=== PATIENT | male | born 1980 | race Caucasian/White ===

== ENCOUNTER 2016-09-19 00:47 | Emergency (ER) | payer MEDICAID, OTHER ==
--- NOTE | 2016-09-19 01:47 | EDM.PDOC ---
ED HPI GENERAL MEDICAL PROBLEM - General Chief Complaint: Neuro Symptoms/Deficits Stated Complaint: MEDICAL VIA NORTH Time Seen by Provider: 09/19/16 01:05 Source of Information: Reports: Patient, EMS, Family History Limitations: Reports: No Limitations - History of Present Illness INITIAL COMMENTS - FREE TEXT/NARRATIVE: 36-year-old male who is been having partial seizure like episodes for the last 17 years, experienced a more dramatic generalized type seizure witnessed by his this evening. He was looking at his phone when he felt something "wasn't right" so he set his phone down but that's the last thing he remembers. He then folded his arms and started to have generalized shaking after some moaning sounds, his eyes were open and he started foaming from the right side of his mouth. This lasted 1-2 minutes and his called the ambulance. He did bite the right side of his tongue. He has not been ill lately, has felt fine and has not had any seizure-like episode for 6 months. His previous episodes were smells or recurring visions that are persistent for 30 seconds to a minute but he stays conscious and can even "drive through them". They were significant enough to mention to his physician's but nothing was checked because they felt it should be witnessed. Denies headaches. He did take a Benadryl 2 hours ago to help him sleep. He does not drink alcohol. EMS did check a blood glucose on arrival and it was 57, 10 g of glucose was given in route and it is now 117. Severity: Moderate Associated Symptoms: Reports: Other (Bit his tongue) mid back Pain Score (Numeric/FACES): 5 - Related Data Allergies Allergy/AdvReac Type Severity Reaction Status Date / Time No Known Allergies Allergy Verified 09/19/16 01:03 Home Meds: Home Meds Acetaminophen [Tylenol] 1,000 mg PO Q6H PRN 11/09/13 [History] Ibuprofen 400 mg PO Q6H PRN 11/09/13 [History] diphenhydrAMINE [Benadryl] 25 mg PO Q4H PRN 09/19/16 [History] Past Medical History Cardiovascular History: Reports: Arrhythmia Neurological History: Reports: Seizure, Other (See Below) Other Neuro History: undiagnosed Hematologic History: Reports: None Oncologic (Cancer) History: Reports: None - Infectious Disease History Infectious Disease History: Reports: Chicken Pox - Past Surgical History Cardiovascular Surgical History: Reports: Cardiac Ablation Social & Family History - Tobacco Use Years of Tobacco use: 20 Packs/Tins Daily: 0.3 - Caffeine Use Caffeine Use: Reports: Coffee - Alcohol Use Days Per Week of Alcohol Use: 0 - Recreational Drug Use Recreational Drug Use: No ED ROS GENERAL - Review of Systems Review Of Systems: See Below Constitutional: Denies: Fever, Chills, Malaise HEENT: Denies: Vision Change Respiratory: Denies: Shortness of Breath, Cough Cardiovascular: Denies: Chest Pain Endocrine: Denies: Fatigue GI/Abdominal: Denies: Abdominal Pain, Nausea, Vomiting : Reports: No Symptoms Musculoskeletal: Reports: No Symptoms Skin: Reports: No Symptoms Neurological: Denies: Dizziness, Headache Psychiatric: Reports: No Symptoms - Physical Exam Exam: See Below Exam Limited By: No Limitations General Appearance: Alert, No Apparent Distress Eye Exam: Bilateral Eye: EOMI, Normal Inspection Throat/Mouth: Evidence of Tongue Biting (Right posterior lateral tongue has a small contusion) Head Exam: Atraumatic, Normocephalic Neck: Normal Inspection Respiratory/Chest: No Respiratory Distress, Lungs Clear Cardiovascular: Regular Rate, Rhythm GI/Abdominal: Soft, Non-Tender Neuro Exam (Abbreviated): Alert, Oriented, No Motor/Sensory Deficits Psychiatric: Normal Affect, Normal Mood Skin Exam: Warm, Dry Course - Vital Signs Last Recorded V/S: Last Vital Signs Temp 97.9 F 09/19/16 00:59 Pulse 75 09/19/16 01:25 Resp 16 09/19/16 01:25 BP 133/88 09/19/16 01:25 Pulse Ox 97 09/19/16 01:25 - Orders/Labs/Meds Orders: Active Orders 24 hr Category Date Time Status Head wo Cont [CT] Stat Exams 09/19/16 01:23 Taken Labs: Laboratory Tests 09/19/16 09/19/16 Range/Units 01:23 01:30 WBC 12.2 H (4.5-11.0) K/uL RBC 4.70 (4.30-5.90) M/uL Hgb 13.8 (12.0-15.0) g/dL Hct 40.2 (40.0-54.0) % MCV 86 (80-98) fL MCH 29 (27-31) pg MCHC 34 (32-36) % Plt Count 224 (150-400) K/uL Neut % (Auto) 76 H (36-66) % Lymph % (Auto) 12 L (24-44) % [place] % (Auto) 8 H (2-6) % Eos % (Auto) 3 (2-4) % Baso % (Auto) 1 (0-1) % Sodium 139 L (140-148) mmol/L Potassium 4.1 (3.6-5.2) mmol/L Chloride 105 (100-108) mmol/L Carbon Dioxide 27 (21-32) mmol/L Anion Gap 11.1 (5.0-14.0) mmol/L BUN 14 (7-18) mg/dL Creatinine 1.0 (0.8-1.3) mg/dL Est Cr Clr Drug Dosing 109.93 mL/min Estimated GFR (MDRD) > 60 (>60) Glucose 107 H (74-106) mg/dL Calcium 9.0 (8.5-10.1) mg/dL Magnesium 2.0 (1.8-2.4) mg/dL Total Bilirubin 0.2 (0.2-1.0) mg/dL AST 23 (15-37) U/L ALT 25 (12-78) U/L Alkaline Phosphatase 56 (46-116) U/L Total Protein 7.1 (6.4-8.2) g/dL Albumin 3.6 (3.4-5.0) g/dL Globulin 3.5 (2.3-3.5) g/dL Albumin/Globulin Ratio 1.0 L (1.2-2.2) Meds: Medications Discontinued Medications Generic Name Dose Route Start Last Admin Trade Name Joleen PRN Reason Stop Dose Admin Ibuprofen 600 mg 09/19/16 02:28 09/19/16 02:30 Motrin PO 09/19/16 02:29 600 mg ONETIME ONE Administration Ibuprofen Confirm 09/19/16 02:29 Motrin Administered 09/19/16 02:30 Dose 600 mg .ROUTE .STK-MED ONE - Re-Assessments/Exams Free Text/Narrative Re-Assessment/Exam: 09/19/16 01:47 A long discussion was had with the patient and his , his mental status is now baseline and he is thinking clearly. CBC, CMP, magnesium, and head CT without contrast was obtained. 09/19/16 02:16 Labs were all reassuring. Head CT was normal. He continued to feel fine. I'm going to discharge him home but discussed his case with neurology and try to get an appointment for him in the near future. 09/19/16 06:45 Patient's symptoms were discussed with neurology. It was recommended he be loaded with Keppra, and continued on oral Keppra and a MRI of his head with and without contrast be obtained and then neurology consulted. This was arranged. Departure - Departure Time of Disposition: 02:31 Disposition: Home, Self-Care 01 Condition: Good Clinical Impression: Seizure - Discharge Information Instructions: Seizure, Adult, [id number] Referrals: PCP,None [Primary Care Provider] - Forms: ED Department Discharge Care Plan Goals: Rest tomorrow, I will call you in the morning with further instructions and suggestions on follow-up. - My Orders Last 24 Hours: My Active Orders 09/19/16 01:23 Head wo Cont [CT] Stat - Assessment/Plan Last 24 Hours: My Active Orders 09/19/16 01:23 Head wo Cont [CT] Stat
[2016-09-19 02:16] VITALS: BP 133/88
[2016-09-19] MEDS ORDERED: Ibuprofen 600 MG Tab PO ONE (02:28)
[2016-09-19] MEDS ORDERED: Ibuprofen 600 MG Tab ONE (02:29)
[2016-09-19] MEDS ORDERED: levETIRAcetam 2,000 MG in Sodium Chloride 0.9% 150 ML IV ONE (07:45)
== END 2016-09-19 02:31 | disposition home or self-care (01) ==
LOC: JP.ED 00:47
DX: R56.9 Unspecified convulsions (principal)
CPT/HCPCS: 36415; 70450; 80053; 83735; 85025; 99285; A9270; 96365; J1953; J7040

== ENCOUNTER 2018-05-11 01:13 | Emergency (ER) | payer MEDICAID ==
[2018-05-11] MEDS ORDERED: levETIRAcetam 500 MG/5 ML Solution ML 473 ml Bottle PO STA (01:54)
[2018-05-11] MEDS ORDERED: levETIRAcetam 250 MG Tab PO STA (02:01)
--- NOTE | 2018-05-11 02:06 | EDM.PDOC ---
ED HPI GENERAL MEDICAL PROBLEM - General Chief Complaint: Neurological Problem Stated Complaint: MEDICAL VIA NORTH Time Seen by Provider: 05/11/18 01:40 Source of Information: Reports: Patient, Family, Old Records, RN History Limitations: Reports: No Limitations - History of Present Illness INITIAL COMMENTS - FREE TEXT/NARRATIVE: 38 yo male presents from home after a couple minute seizure. Had a couple seizures in the past and was apparently managed with low dose Keppra at 500 mg bid. Higher doses caused too much sedation. Eventually since he was seizure free they elected to stop the med and he later threw it out. Now he is back for more of this. Also has a hx of SVT and had a failed ablation for this so still has some bouts of tachycardia. Bit his tongue during his seizure. Onset: Today Onset Date: 05/11/18 Onset Time: 12:15 Duration: Minutes: (2), Resolved Prior to Arrival Location: Reports: Generalized Quality: Reports: Other (no pain reported.) Severity: Moderate Improves with: Reports: None Worsens with: Reports: None Context: Reports: Other (see HPI) Associated Symptoms: Reports: No Other Symptoms Treatments CREAM DUMPER: Reports: IV/IO, Other (see below) (none) - Related Data Allergies Allergy/AdvReac Type Severity Reaction Status Date / Time No Known Allergies Allergy Verified 05/11/18 01:22 Home Meds: Home Meds Acetaminophen [Tylenol] 1,000 mg PO Q6H PRN 11/09/13 [History] Ibuprofen 400 mg PO Q6H PRN 11/09/13 [History] diphenhydrAMINE [Benadryl] 25 mg PO Q4H PRN 09/19/16 [History] levETIRAcetam [Keppra] 500 mg PO Q12H #60 tablet 05/11/18 [Rx] Past Medical History Cardiovascular History: Reports: Arrhythmia Genitourinary History: Reports: Renal Calculus Neurological History: Reports: Seizure, Other (See Below) Other Neuro History: undiagnosed Hematologic History: Reports: None Oncologic (Cancer) History: Reports: None - Infectious Disease History Infectious Disease History: Reports: Chicken Pox - Past Surgical History Cardiovascular Surgical History: Reports: Cardiac Ablation Social & Family History - Tobacco Use Smoking Status *Q: Current Every Day Smoker Years of Tobacco use: 25 Packs/Tins Daily: 0.3 - Caffeine Use Caffeine Use: Reports: Tea - Recreational Drug Use Recreational Drug Use: No ED ROS GENERAL - Review of Systems Review Of Systems: See Below Constitutional: Reports: No Symptoms HEENT: Reports: Other (minor tongue injury from biting during seizure.) Respiratory: Reports: No Symptoms Cardiovascular: Reports: No Symptoms GI/Abdominal: Reports: No Symptoms : Reports: No Symptoms Musculoskeletal: Reports: No Symptoms Skin: Reports: No Symptoms Neurological: Reports: Seizure Psychiatric: Reports: No Symptoms - Physical Exam Exam: See Below Exam Limited By: No Limitations General Appearance: Alert, WD/WN, No Apparent Distress Eye Exam: Bilateral Eye: Normal Inspection Ears: Normal External Exam, Normal Canal, Normal TMs Nose: Normal Inspection, No Blood Throat/Mouth: Normal Inspection, Normal Lips, Normal Oropharynx, Normal Voice, No Airway Compromise, Evidence of Tongue Biting Head Exam: Atraumatic, Normocephalic Neck: Normal Inspection Respiratory/Chest: No Respiratory Distress, Lungs Clear, Normal Breath Sounds, No Accessory Muscle Use Cardiovascular: Regular Rate, Rhythm, No Edema GI/Abdominal: Normal Bowel Sounds, Soft, Non-Tender Neuro Exam (Abbreviated): Alert, Oriented, CN II-XII Intact, Normal Cognition, No Motor/Sensory Deficits Back Exam: Normal Inspection Extremities: Normal Inspection, Normal Range of Motion, Non-Tender, No Pedal Edema Psychiatric: Normal Affect, Normal Mood Skin Exam: Warm, Dry, Intact, Normal Color, No Rash Course - Vital Signs Last Recorded V/S: Last Vital Signs Temp 36.6 C 05/11/18 01:16 Pulse 79 05/11/18 02:17 Resp 16 05/11/18 02:17 BP 114/65 05/11/18 02:17 Pulse Ox 95 05/11/18 02:17 - Orders/Labs/Meds Meds: Medications Discontinued Medications Generic Name Dose Route Start Last Admin Trade Name Joleen PRN Reason Stop Dose Admin Levetiracetam 500 mg 05/11/18 01:54 05/11/18 02:09 Keppra PO 05/11/18 01:55 Not Given NOW STA Levetiracetam 1,500 mg 05/11/18 02:01 05/11/18 02:07 Keppra PO 05/11/18 02:02 1,500 mg NOW STA Administration Departure - Departure Time of Disposition: 02:27 Disposition: Home, Self-Care 01 Condition: Fair Clinical Impression: Seizure - Discharge Information *PRESCRIPTION DRUG MONITORING PROGRAM REVIEWED*: No *COPY OF PRESCRIPTION DRUG MONITORING REPORT IN PATIENT [place]: No Prescriptions: levETIRAcetam [Keppra] 500 mg PO Q12H #60 tablet Instructions: Seizure, Adult, [id number] Referrals: PCP,None [Primary Care Provider] - Forms: ED Department Discharge Additional Instructions: Resume Keppra. No driving until cleared medically. Avoid activities that would place you in danger were you to have another seizure. Recheck with your provider before the month is up to renew your Keppra Rx. Return here as needed.
[2018-05-11 02:18] VITALS: BP 114/65
== END 2018-05-11 02:34 | disposition home or self-care (01) ==
LOC: JP.ED 01:13
DX: R56.9 Unspecified convulsions (principal); F17.210 Nicotine dependence, cigarettes, uncomplicated; Z79.899 Other long term (current) drug therapy
CPT/HCPCS: 99284; A9270

== ENCOUNTER 2018-11-29 19:08 | Emergency (ER) | payer SELFPAY ==
[2018-11-29] MEDS ORDERED: Ketorolac 60 MG/2 ML SDV IM ONE (19:23)
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
[2018-11-29] MEDS ORDERED: Metoprolol Succinate 50 MG Tab.ER PO ONE (20:22)
[2018-11-29 20:29] VITALS: BP 101/59
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
== END 2018-11-29 21:00 | disposition home or self-care (01) ==
LOC: JP.ED 19:08
DX: R56.9 Unspecified convulsions (principal); I48.0 Paroxysmal atrial fibrillation; Z79.899 Other long term (current) drug therapy
CPT/HCPCS: 72110; 96372; 99284; A9270; J1885